=== PATIENT | male | born 1970 | race Caucasian/White ===

== ENCOUNTER 2020-08-03 14:06 | Observation (INO) ==
[2020-08-03] MEDS ORDERED: Morphine Sulfate 2 MG/ML SYRINGE IVP ONE (14:32)
[2020-08-03] MEDS ORDERED: Ondansetron 4 MG/2 ML VIAL IVP ONE (14:32)
[2020-08-03] MEDS ORDERED: Nitroglycerin 1 INCH/GM PACKET TP ONE (14:32)
[2020-08-03 15:01] LABS: Alanine Aminotransferase 29 Units/L (7-52); Albumin 4.5 g/dL (3.5-5.7); Albumin/Globulin Ratio 1.6 (1.1-2.2); Alkaline Phosphatase 102 Units/L (34-104); Aspartate Amino Transferase 21 Units/L (13-39); BUN/Creatinine Ratio 11 (6-26); Bilirubin,Total 0.6 mg/dL (0.3-1.0); Blood Urea Nitrogen 11 mg/dL (6-20); Calcium 9.6 mg/dL (8.6-10.3); Carbon Dioxide 25 mEq/L (23-29); Chloride 104 mEq/L (98-107); Globulin 2.8 g/dL (2.4-3.5); Glucose 86 mg/dL (70-105); Lipase 27 Units/L (11-82); Osmolality,Calculated 285 (280-300); Potassium 3.9 mEq/L (3.5-5.1); Sodium 138 mEq/L (136-145); Total Protein 7.3 g/dL (6.4-8.9); eGFR For African Americans > 60 (> 60); eGFR For Non-African Americans > 60 (> 60)
[2020-08-03 15:03] LABS: Prothrombin Time 11.6 Seconds (9.4-12.1)
[2020-08-03 15:04] LABS: Basophils # 0.1 K/mcL (0.0-0.2); Basophils % 0.7 %; Eosinophils # 1.2 K/mcL (0.0-0.6); Eosinophils % 10.4 %; Hematocrit 49.4 % (37.5-50.1); Hemoglobin 17.1 g/dL (12.9-16.9); Immature Granulocytes % 0.8 % (0-4); Lymphocytes # 3.5 K/mcL (0.6-4.6); Mean Corpuscular HGB Conc 34.6 g/dL (31.6-35.5); Mean Corpuscular Hemoglobin 31.3 pg (28.0-33.3); Mean Corpuscular Volume 90.3 fL (83.0-100.0); Mean Platelet Volume 12.5 fL (9.4-12.4); Neutrophils # 6.1 K/mcL (1.6-8.9); Platelet Count 214 K/mcL (140-400); Red Blood Count 5.47 M/mcL (4.19-5.50); Red Cell Distribution Width 12.9 % (11.5-14.5); Segmented Neutrophils % 51.1 %; Troponin I < 0.03 ng/mL (< 0.04); White Blood Count 11.9 K/mcL (4.3-11.1)
[2020-08-03] MEDS ORDERED: 0.9 % Sodium Chloride 1,000 ML IVC SCH (16:21)
[2020-08-03] MEDS ORDERED: *HR* Promethazine 25 MG/ML VIAL IVP PRN (16:21)
[2020-08-03] MEDS ORDERED: Ondansetron ODT 4 MG TAB.RAPDIS SL PRN (16:21)
[2020-08-03] MEDS ORDERED: Ondansetron 4 MG/2 ML VIAL IVP PRN (16:21)
[2020-08-03] MEDS ORDERED: Naloxone 0.4 MG/ML INJ IVP PRN (16:21)
[2020-08-03 17:50] LABS: Bilirubin,Urine Negative (Negative); Blood,Urine Negative (Negative); Clarity,Urine Clear (Clear); Color,Urine Yellow (Yellow); Glucose,Urine (UA) Normal (Normal); Ketones,Urine Negative (Negative); Leukocyte Esterase,Urine Negative (Negative); Nitrite,Urine Negative (Negative); PH,Urine 6.5 pH Units (5.0-8.0); Protein,Urine Negative (Neg-Trace); Urobilinogen,Urine Normal (Normal)
[2020-08-03] MEDS: Nicotine 21 MG PATCH.TD24 TD SCH (17:55)
[2020-08-03] MEDS: Ibuprofen 400 MG TABLET PO PRN (19:34)
[2020-08-03] MEDS ORDERED: Aspirin 81 MG TAB.CHEW PO SCH (21:00)
[2020-08-04] MEDS: Nicotine 21 MG PATCH.TD24 TD SCH (08:07)
[2020-08-04] MEDS ORDERED: Nicotine 21 MG PATCH.TD24 TD SCH (09:00)
[2020-08-04] MEDS: Ibuprofen 400 MG TABLET PO PRN (10:13)
[2020-08-04 10:46] LABS: Basophils # 0.1 K/mcL (0.0-0.2); Basophils % 0.8 %; Eosinophils # 1.3 K/mcL (0.0-0.6); Eosinophils % 13.1 %; Hematocrit 45.5 % (37.5-50.1); Hemoglobin 15.6 g/dL (12.9-16.9); Immature Granulocytes % 0.5 % (0-4); Lymphocytes # 2.7 K/mcL (0.6-4.6); Lymphocytes % 27.8 %; Mean Corpuscular HGB Conc 34.3 g/dL (31.6-35.5); Mean Corpuscular Hemoglobin 31.3 pg (28.0-33.3); Mean Corpuscular Volume 91.2 fL (83.0-100.0); Mean Platelet Volume 11.3 fL (9.4-12.4); Monocytes # 0.8 K/mcL (0.0-1.3); Monocytes % 8.6 %; Neutrophils # 4.7 K/mcL (1.6-8.9); Platelet Count 189 K/mcL (140-400); Red Blood Count 4.99 M/mcL (4.19-5.50); Segmented Neutrophils % 49.2 %; White Blood Count 9.5 K/mcL (4.3-11.1)
[2020-08-04 10:59] LABS: BUN/Creatinine Ratio 12 (6-26); Blood Urea Nitrogen 12 mg/dL (6-20); Calcium 8.8 mg/dL (8.6-10.3); Carbon Dioxide 24 mEq/L (23-29); Chloride 107 mEq/L (98-107); Glucose 121 mg/dL (70-105); Osmolality,Calculated 287 (280-300); Sodium 138 mEq/L (136-145); eGFR For African Americans > 60 (> 60); eGFR For Non-African Americans > 60 (> 60)
[2020-08-04 12:09] VITALS: BP 124/65
== END 2020-08-04 12:07 | disposition home or self-care (01) ==
LOC: INPGRE 14:06 → EMEROOGRE 14:06 → INPGRE 16:31
PROVIDERS: ADMIT Family Medicine; ATTEND Family Medicine